=== PATIENT | female | born 1980 | race Caucasian/White ===

== ENCOUNTER → 2016-11-28 | Outpatient (CLI) | payer BC | LOC: FIMAGING 17:34 | PROVIDERS: ATTEND Family Medicine | DX: S62.637A Displaced fracture of distal phalanx of left little finger, initial encounter for closed fracture (principal) ==

== ENCOUNTER 2016-12-24 19:22 | Emergency (ER) | payer BC ==
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
[2016-12-24] MEDS ORDERED: AMOXICILLIN/CLAVULANATE POT 875/125 MG TAB PO ONE (22:57)
[2016-12-24 23:04] VITALS: BP 132/109; PULSE 59; RESP 20; TEMP 98.4; O2SAT 99
== END 2016-12-24 23:03 | disposition home or self-care (01) ==
PROC: 0HQDXZZ Repair Right Lower Arm Skin, External Approach (ICD-10-PCS; principal; 2016-12-24)
DX: S51.011A Laceration without foreign body of right elbow, initial encounter (principal); V18.4XXA Pedal cycle driver injured in noncollision transport accident in traffic accident, initial encounter; Y92.410 Unspecified street and highway as the place of occurrence of the external cause; Y99.8 Other external cause status; Y93.55 Activity, bike riding
CPT/HCPCS: A4565